=== PATIENT | male | born 1985 | race Caucasian/White ===

== ENCOUNTER 2019-03-25 13:23 | Outpatient (CLI) | payer OTHER ==
--- NOTE | 2019-03-30 12:29 | OP Clinic Progress Note ---
DATE OF VISIT: 03/25/2019 SUBJECTIVE: Rai Calabrese is a 33-year-old male presenting to clinic today for a painful ingrown toenail of the left great toe lateral border. The patient has had multiple ingrown toenails on different toes including this one treated before and would like the permanent procedure performed at this time. He denies any drainage or concerns or infection recently. He does not admit to any fevers, chills, nausea, vomiting, shortness of breath or chest pain. He denies being diabetic. OBJECTIVE: Vitals: Temperature 98.0 degrees Fahrenheit, heart rate 90, respiration rate 18, blood pressure 151/79. O2 saturation is 98% on room air. Vascular: 1+ DP and PT pulses, left foot. Capillary refill time is less than 3 seconds to the toes of the left foot. There is hair growth noted on the toes, left foot. There is no edema noted, left foot. Dermatologic: There is mild edema actually noted at the left great toenail lateral border. There is no drainage or purulence or malodor or erythema of any kind. There are no other skin lesions noted. The left great toenail is also quite long. It is obvious that it has had a procedure performed on it before several months ago and is growing in again, but is causing pain again. Musculoskeletal: There is pain on palpation noted on the lateral border of the left great toenail. There are no gross abnormalities noted. Neurologic: Light touch sensation is intact to the toes, left foot. ASSESSMENT AND PLAN: 1. Onychocryptosis, left hallux lateral border. Consent was obtained after discussing the risks and benefits that include but not limited to bleeding and infection and nonhealing of the toe. The consent was signed and placed in the chart. PROCEDURE #1: Left hallux lateral nail partial nail avulsion with chemical matrixectomy. An alcohol swab was utilized to cleanse the base of the left great toe. An injection with 5 mL of a 1:1 mix of 2% lidocaine plain and 0.5% Marcaine plain were injected into the left great toe base. The toe was anesthetized properly. At this time, the toe was exsanguinated and toe tourniquet was applied at the base of the left great toe. The toe was then cleansed with a Betadine prep. At this time, the lateral border of the left great toenail was avulsed as a partial nail avulsion with a nail splitter and hemostat. At this time, Phenol was then applied consisting of three applications, 45 seconds, 30 seconds and 30 seconds with cotton tip applicators. The tourniquet was then released and a prompt hyperemic response was noted to the left great toe. 70% isopropyl alcohol was then utilized in a copious amount to rinse out the toe area. It should be noted that the adjacent areas around the great toenail border and on the second toe were covered in antibiotic ointment to protect it from any acid that may leak. A copious amount of normal saline was then utilized to cleanse the site of the procedure. The area was dried and dressings were applied consisting of Silvadene, 4x4 gauze, 2-inch Ale and 1-inch Coban beginning on the toe and ending on the distal forefoot. The patient had no further questions or concerns. Instructions were given verbally and by written instructions. Return to clinic in one week for followup. If the patient has any concerns for infection, he is to report to the ER or urgent care over the weekend or come see me if it is not having issues until early next week. Radha [email or web address].[email or web address].(Dictated/not signed) /[employer] [id number] /mab MTDD
== END 2019-03-25 14:00 ==
LOC: POD 13:23 → EDBD 13:30 → POD 14:00
PROVIDERS: ATTEND Podiatrist Foot & Ankle Surgery
DX: L60.0 Ingrowing nail (principal)
CPT/HCPCS: 11730; 99213